=== PATIENT | male | born 1965 | race Hispanic/Latino ===

== ENCOUNTER 2020-03-04 13:47 | Emergency (ER) | payer OTHER, SELFPAY ==
[2020-03-04 14:58] LABS: BASOPHILS % (AUTO) 0.6 % (0.0-5.0); EOSINOPHILS % (AUTO) 4.2 % (0.0-8.0); LYMPHOCYTES % (AUTO) 18.9 % (21.0-51.0); MEAN CORPUSCULAR HEMOGLOBIN 29.1 pg (27.0-33.0); MEAN CORPUSCULAR HGB CONC 34.6 g/dL (32.0-36.0); MEAN CORPUSCULAR VOLUME 84.2 fL (79-99); MONOCYTES % (AUTO) 7.1 % (3.0-13.0); NEUTROPHILS % (AUTO) 69.1 % (40.0-77.0); PLATELET COUNT (AUTO) 183 K/uL (130-400); RED BLOOD CELL COUNT(AUTO) 2.85 MIL/uL (4.50-6.20); RED CELL DISTRIBUTION WIDTH 13.5 % (11.0-15.5); WHITE BLOOD COUNT (AUTO) 6.9 K/uL (4.8-10.8)
[2020-03-04 15:08] LABS: CREATININE 2.7 mg/dL (0.5-1.5); POTASSIUM 5.2 mmol/L (3.5-5.1)
[2020-03-04 15:12] LABS: INR 0.93 (0.85-1.15); PARTIAL THROMBOPLASTIN TIME 27.2 SEC (26.3-35.5); PROTHROMBIN TIME 10.1 SEC (9.6-11.6)
[2020-03-04 15:15] LABS: ALBUMIN 3.5 g/dL (3.5-5.0); BILIRUBIN,TOTAL 0.2 mg/dL (0.2-1.0); TOTAL PROTEIN, SERUM 7.2 g/dL (6.0-8.3)
[2020-06-30] MEDS ORDERED: LOSA100T58 PO (15:55)
[2020-06-30] MEDS ORDERED: METO50TA18 PO (15:55)
[2020-06-30] MEDS ORDERED: FURO20TA4 PO (15:55)
[2020-06-30] MEDS ORDERED: LOVA10TA2 PO (15:55)
[2020-06-30] MEDS ORDERED: FERR159T2 PO (15:55)
[2020-06-30] MEDS ORDERED: METF-446 PO (15:55)
[2020-06-30] MEDS ORDERED: HYDR25TA PO (15:55)
[2020-06-30] MEDS ORDERED: NIFE90TA65 PO (15:55)
[2020-07-02] MEDS ORDERED: Isosorbide Mono 30MG Tab Sr PO (10:54)
== END 2020-03-04 15:34 | disposition home or self-care (01) ==
LOC: EDH 13:47
DX: D64.9 Anemia, unspecified (principal); N28.9 Disorder of kidney and ureter, unspecified; E11.9 Type 2 diabetes mellitus without complications
CPT/HCPCS: 36415; 80053; 85025; 85610; 85730

== ENCOUNTER 2020-12-07 16:31 | Observation (INO) | payer MEDICAID, OTHER ==
[~2020-12-07] VITALS: Ht 152.4 cm; Wt 75.7 kg
[~2020-12-07 16:31] MED LIST: FERR159T2 PO; HYDR25TA PO; Isosorbide Mono 30MG Tab Sr PO; LOVA10TA2 PO; METO50TA18 PO; NIFE90TA65 PO
[2020-12-07 16:50] LABS: BASOPHILS % (AUTO) 0.4 % (0.0-5.0); EOSINOPHILS % (AUTO) 3.4 % (0.0-8.0); HEMATOCRIT 21.5 % (42-54); LYMPHOCYTES % (AUTO) 14.9 % (21.0-51.0); MEAN CORPUSCULAR HEMOGLOBIN 28.8 pg (27.0-33.0); MEAN CORPUSCULAR HGB CONC 32.1 g/dL (32.0-36.0); MEAN CORPUSCULAR VOLUME 89.6 fL (79-99); MONOCYTES % (AUTO) 8.8 % (3.0-13.0); NEUTROPHILS % (AUTO) 72.2 % (40.0-77.0); PLATELET COUNT (AUTO) 212 K/uL (130-400)
[2020-12-07] MEDS ORDERED: ASPIRIN 325 MG TABLET ONE (16:57)
[2020-12-07 17:19] LABS: INR 1.01 (0.85-1.15)
[2020-12-07 17:20] LABS: PARTIAL THROMBOPLASTIN TIME 25.2 SEC (26.3-35.5)
[2020-12-07 17:32] LABS: APPEARANCE,URINE Clear (CLEAR); BILIRUBIN,URINE Negative (NEGATIVE); COLOR,URINE Yellow (YELLOW); GLUCOSE, URINE (UA) Negative (NEGATIVE); KETONES,URINE Negative (NEGATIVE); LEUKOCYTE ESTERASE ,URINE Negative (NEGATIVE); NITRATE,URINE Negative (NEGATIVE); OCCULT BLOOD,URINE Small (NEGATIVE); PH,URINE 7.5 (5.0-8.0); PROTEIN,URINE POS 2+ mg/dL (NEGATIVE); UROBILINOGEN,URINE 0.2 mg/dL (0.2-1.0)
[2020-12-07 17:36] LABS: CREATININE 4.4 mg/dL (0.5-1.5); POTASSIUM 5.2 mmol/L (3.5-5.1)
[2020-12-07] MEDS ORDERED: HYDRALAZINE HCL 20 MG/ML VIAL ONE (17:40)
[2020-12-07 17:41] LABS: ALBUMIN 3.3 g/dL (3.5-5.0); BILIRUBIN,TOTAL 0.4 mg/dL (0.2-1.0); TOTAL PROTEIN, SERUM 7.9 g/dL (6.0-8.3)
[2020-12-07 18:05] LABS: BACTERIA,URINE Rare /HPF (None Seen); WBC,URINE 0-1 /HPF (0-1)
[2020-12-07 18:06] LABS: SQUAMOUS EPITHELIAL CELL,UR Rare /HPF (0-2)
[2020-12-07] MEDS ORDERED: FUROSEMIDE 10 MG/ML 4ML VIAL ONE ×2 (19:03→22:41)
[2020-12-07] MEDS ORDERED: METOPROLOL TARTRATE 25 MG TAB PO SCH (21:15)
[2020-12-07] MEDS ORDERED: ONDANSETRON HCL 4 MG/2 ML VIAL IV PRN (21:15)
[2020-12-07] MEDS ORDERED: ACETAMINOPHEN 325 MG TAB PO PRN ×2 (21:15)
[2020-12-07] MEDS ORDERED: NIFEDIPINE 10 MG CAP PO SCH (21:15)
[2020-12-07] MEDS: NITROGLYCERIN 1GM/1 INCH PACKET TD SCH (21:15)
[2020-12-07] MEDS ORDERED: LACTULOSE 20 GM/30 ML UDCUP PO PRN (21:15)
[2020-12-07] MEDS ORDERED: FUROSEMIDE 10 MG/ML 4ML VIAL IVP SCH (21:30)
[2020-12-07 21:56] LABS: % IRON SATURATION 15.2 % (30-44)
[2020-12-07] MEDS: ATORVASTATIN CALCIUM 40 MG TABLET PO SCH (22:00)
[2020-12-07 22:01] LABS: RETICULOCYTE % (AUTO) 3.25 % (0.42-2.23)
[2020-12-07 22:07] LABS: AMPHET/METH SCREEN,URINE NEGATIVE (NEGATIVE); BARBITURATE SCREEN, URINE NEGATIVE (NEGATIVE); BENZODIAZEPINES SCREEN,URINE NEGATIVE (NEGATIVE); CANNABINOID SCREEN,URINE NEGATIVE (NEGATIVE); COCAINE SCREEN,URINE NEGATIVE (NEGATIVE); CREATININE,URINE RANDOM 48 mg/dL (30-135); OPIATE SCREEN,URINE NEGATIVE (NEGATIVE); PHENCYCLIDINE SCREEN,URINE NEGATIVE (NEGATIVE); PROTEIN,URINE RANDOM 114.3 mg/dL (0-11.9); SODIUM,URINE RANDOM 85 mmol/l (40-220)
[2020-12-07 22:24] LABS: HEMOGLOBIN A1C 6.8 % (4.0-6.0)
[2020-12-07] MEDS ORDERED: SODIUM POLYSTYRENE SULFONATE 15 GM/60 ML ML PO SCH (22:30)
[2020-12-07 22:31] LABS: PHOSPHORUS 5.1 mg/dL (2.5-4.9)
[2020-12-07] MEDS ORDERED: SODIUM POLYSTYRENE SULFONATE 15 GM/60 ML ML ONE (22:41)
[2020-12-07] MEDS ORDERED: ATORVASTATIN CALCIUM 40 MG TABLET ONE (22:41)
[2020-12-07] MEDS ORDERED: METOPROLOL TARTRATE 25 MG TAB ONE (22:42)
[2020-12-07] MEDS ORDERED: NITROGLYCERIN 1GM/1 INCH PACKET TD ONE (22:42)
[2020-12-07] MEDS ORDERED: NIFEDIPINE 10 MG CAP ONE (22:42)
[2020-12-07 23:05] VITALS: BP 229/102
[2020-12-07 23:18] LABS: TROPONIN I 0.09 ng/mL (0.00-0.06)
[2020-12-08] VITALS (7 sets, daily range): BP systolic 127–178; BP diastolic 61–82
[2020-12-08 04:54] LABS: CREATININE 4.3 mg/dL (0.5-1.5); POTASSIUM 4.2 mmol/L (3.5-5.1); TROPONIN I 0.09 ng/mL (0.00-0.06)
[2020-12-08] MEDS: NITROGLYCERIN 1GM/1 INCH PACKET TD SCH ×3 (05:29→23:09)
[2020-12-08] MEDS ORDERED: FOLI5VIA2 IJ (05:44)
[2020-12-08] MEDS ORDERED: LEVO25CA4 PO (05:44)
[2020-12-08] MEDS ORDERED: FURO20TA4 PO (05:44)
[2020-12-08] MEDS: LEVOTHYROXINE 25 MCG TABLET PO SCH (06:55)
[2020-12-08] MEDS: NIFEDIPINE ER 30 MG TAB PO SCH (09:49)
[2020-12-08] MEDS: METOPROLOL TARTRATE 50 MG TAB PO SCH ×2 (09:49→19:48)
[2020-12-08] MEDS: FOLIC ACID 1 MG TABLET PO SCH (09:50)
[2020-12-08 13:18] LABS: BASOPHILS % (AUTO) 0.5 % (0.0-5.0); EOSINOPHILS % (AUTO) 3.8 % (0.0-8.0); HEMATOCRIT 27.5 % (42-54); LYMPHOCYTES % (AUTO) 15.5 % (21.0-51.0); MEAN CORPUSCULAR HGB CONC 30.9 g/dL (32.0-36.0); MEAN CORPUSCULAR VOLUME 90.5 fL (79-99); MONOCYTES % (AUTO) 9.4 % (3.0-13.0); NEUTROPHILS % (AUTO) 70.2 % (40.0-77.0); PLATELET COUNT (AUTO) 231 K/uL (130-400); RED BLOOD CELL COUNT(AUTO) 3.04 MIL/uL (4.50-6.20); RED CELL DISTRIBUTION WIDTH 13.6 % (11.0-15.5)
[2020-12-08] MEDS ORDERED: COMPOUND IV MISC 1 EACH IVSOLN MISC PRN (13:30)
[2020-12-08 13:31] LABS: TROPONIN I 0.09 ng/mL (0.00-0.06)
[2020-12-08] MEDS ORDERED: EPOETIN ALFA-EPBX (NON-ESRD) 10,000 UNIT/ML VIAL SQ SCH (14:00)
[2020-12-08] MEDS: ATORVASTATIN CALCIUM 40 MG TABLET PO SCH (19:48)
[2020-12-08] MEDS ORDERED: FAMOTIDINE/PF 20 MG/2 ML VIAL IV SCH (21:00)
[2020-12-09] VITALS: BP 143/69
[2020-12-09 04:00] VITALS: BP 141/59
[2020-12-09 05:37] LABS: CREATININE 4.4 mg/dL (0.5-1.5); POTASSIUM 3.8 mmol/L (3.5-5.1)
[2020-12-09] MEDS: LEVOTHYROXINE 25 MCG TABLET PO SCH (06:10)
[2020-12-09] MEDS: NITROGLYCERIN 1GM/1 INCH PACKET TD SCH (06:12)
[2020-12-09 08:32] VITALS: BP 155/77
[2020-12-09] MEDS: METOPROLOL TARTRATE 50 MG TAB PO SCH (08:42)
[2020-12-09] MEDS: FOLIC ACID 1 MG TABLET PO SCH (08:42)
[2020-12-09] MEDS: NIFEDIPINE ER 30 MG TAB PO SCH (08:42)
[2020-12-09] MEDS ORDERED: IRON SUCROSE COMPLEX 100 MG in SODIUM CHLORIDE 0.9% 50 ML IV SCH (09:00)
[2020-12-09] MEDS ORDERED: CLON0.1T PO (10:10)
[2020-12-09 11:12] LABS: HEPATITIS A ANTIBODY IGM Negative (Negative); HEPATITIS B CORE IGM Negative (Negative); HEPATITIS Bs ANTIGEN SCREEN P Negative (Negative)
[2020-12-09 11:48] VITALS: BP 149/69
[2020-12-09] MEDS ORDERED: FUROSEMIDE 40 MG TABLET PO SCH (17:00)
== END 2020-12-09 12:20 | disposition home or self-care (01) ==
LOC: EDH 16:31 → INTOOBSV 21:06 → EDHIP 21:06 → 4BH 22:54
PROVIDERS: ADMIT Internal Medicine; ATTEND Internal Medicine
DX: I16.0 Hypertensive urgency (principal); I13.0 Hypertensive heart and chronic kidney disease with heart failure and stage 1 through stage 4 chronic kidney disease, or unspecified chronic kidney disease; E11.22 Type 2 diabetes mellitus with diabetic chronic kidney disease; N18.4 Chronic kidney disease, stage 4 (severe); I50.30 Unspecified diastolic (congestive) heart failure; D64.9 Anemia, unspecified; N17.9 Acute kidney failure, unspecified; E87.5 Hyperkalemia; E87.70 Fluid overload, unspecified; R79.89 Other specified abnormal findings of blood chemistry; R80.9 Proteinuria, unspecified; E78.2 Mixed hyperlipidemia; E03.9 Hypothyroidism, unspecified; E78.00 Pure hypercholesterolemia, unspecified; I25.10 Atherosclerotic heart disease of native coronary artery without angina pectoris; Z79.899 Other long term (current) drug therapy
CPT/HCPCS: 36415 ×3; 36430 ×2; 71045; 80048 ×2; 80053; 80074; 80305 ×2; 81001; 82550 ×4; 82570; 82607; 82746; 83036; 83540; 83550; 83735; 83874 ×3; 83880 ×2; 83970; 84100 ×2; 84145; 84156; 84300; 84484 ×4; 84550; 85025 ×2; 85045; 85610; 85730; 86850; 86900; 86901; 86923; 93005 ×4; 93306; 93356; 96365; 96375; 99285; G0378 ×35; J0360; J1756; J1940 ×2; J3490; P9016; Q5106